=== PATIENT | female | born 1980 | race Hispanic/Latino ===

== ENCOUNTER 2018-02-11 19:40 | Emergency (ER) | payer OTHER ==
[2018-02-11 21:43] LABS: APPEARANCE,URINE Clear (CLEAR); BILIRUBIN,URINE Negative (NEGATIVE); COLOR,URINE Yellow (YELLOW); GLUCOSE, URINE (UA) Negative (NEGATIVE); KETONES,URINE Negative (NEGATIVE); LEUKOCYTE ESTERASE ,URINE Moderate (NEGATIVE); NITRATE,URINE Negative (NEGATIVE); OCCULT BLOOD,URINE Negative (NEGATIVE); PROTEIN,URINE Negative (NEGATIVE); UROBILINOGEN,URINE 0.2 mg/dL (0.2-1.0)
[2018-02-11 21:50] LABS: AMPHET/METH SCREEN,URINE NEGATIVE (NEGATIVE); BARBITURATE SCREEN, URINE NEGATIVE (NEGATIVE); BENZODIAZEPINES SCREEN,URINE NEGATIVE (NEGATIVE); CANNABINOID SCREEN,URINE NEGATIVE (NEGATIVE); COCAINE SCREEN,URINE NEGATIVE (NEGATIVE); OPIATE SCREEN,URINE NEGATIVE (NEGATIVE); PHENCYCLIDINE SCREEN,URINE NEGATIVE (NEGATIVE)
[2018-02-11 21:51] LABS: HCG,QUAL RESULT NEGATIVE (NEGATIVE)
[2018-02-11 22:15] LABS: BACTERIA,URINE Moderate /HPF (None Seen); RBC,URINE 0-1 /HPF (0-1); SQUAMOUS EPITHELIAL CELL,UR Few /HPF (0-2)
[2018-02-11 22:16] LABS: MUCUS,URINE Rare LPF (None Seen)
[2018-02-12] MEDS ORDERED: SODIUM CHLORIDE 0.9% 100 ML IV ONE (00:05)
[2018-02-12] MEDS ORDERED: LEVETIRACETAM 500 MG/5 ML SD VIAL IV ONE (00:13)
== END 2018-02-12 00:47 | disposition home or self-care (01) ==
LOC: EDH 19:40
DX: G40.802 Other epilepsy, not intractable, without status epilepticus (principal); I10 Essential (primary) hypertension
CPT/HCPCS: 70450; 80305; 81001; 81025; 96365; 99285; J1953

== ENCOUNTER 2018-02-23 17:41 | Emergency (ER) | payer OTHER | END 2018-02-23 18:27 | disposition home or self-care (01) | LOC: EDH 17:41 | DX: R56.9 Unspecified convulsions (principal); I10 Essential (primary) hypertension; Z76.0 Encounter for issue of repeat prescription ==

== ENCOUNTER 2018-06-06 12:45 | Emergency (ER) | payer BC | END 2018-06-06 13:56 | disposition home or self-care (01) | LOC: EDH 12:45 | DX: R56.9 Unspecified convulsions (principal); Z76.0 Encounter for issue of repeat prescription ==

== ENCOUNTER 2020-01-24 20:37 | Emergency (ER) | payer BC, OTHER ==
[2020-01-24] MEDS ORDERED: LORAZEPAM 2 MG/ML 1 ML VIAL ONE (21:11)
== END 2020-01-24 22:33 | disposition home or self-care (01) ==
LOC: EDH 20:37
DX: F41.9 Anxiety disorder, unspecified (principal); F43.0 Acute stress reaction; I10 Essential (primary) hypertension
CPT/HCPCS: 93005; 96374; 99283; J2060

== ENCOUNTER 2022-02-24 13:20 | Emergency (ER) | payer BC, OTHER ==
[~2022-02-24] VITALS: Ht 152.4 cm; Wt 68.0 kg
[2022-02-24 13:31] VITALS: BP 141/82
[2022-02-24] MEDS ORDERED: 0.9% NACL 500ML IV.SOLN 500 ML IV ONE (14:00)
[2022-02-24] MEDS ORDERED: ONDANSETRON 4MG INJ IVP ONE (14:00)
[2022-02-24] MEDS ORDERED: MORPHINE 2 MG SYG IVP ONE (14:00)
[2022-02-24] MEDS ORDERED: NAPR500T6 PO (14:59)
== END 2022-02-24 15:16 | disposition home or self-care (01) ==
LOC: EDH 13:20
DX: S00.83XA Contusion of other part of head, initial encounter (principal); S00.03XA Contusion of scalp, initial encounter; S10.93XA Contusion of unspecified part of neck, initial encounter; Z90.49 Acquired absence of other specified parts of digestive tract; Z98.890 Other specified postprocedural states; Z79.899 Other long term (current) drug therapy; Y08.89XA Assault by other specified means, initial encounter; Y93.89 Activity, other specified; Y92.89 Other specified places as the place of occurrence of the external cause; Y99.8 Other external cause status
CPT/HCPCS: 70450; 70486; 72125; 96361; 96374; 96375; 99284; J2405; J7040